=== PATIENT | female | born 2000 | race Caucasian/White ===

== ENCOUNTER 2024-08-04 00:02 | Emergency (ER) | payer OTHER ==
[~2024-08-04] VITALS: Ht 160 cm; Wt 81.6 kg
[2024-08-04] MEDS ORDERED: OXYMETAZOLINE NASAL 0.05% 15 ML SPRAY NS ONE (00:19)
[2024-08-04] MEDS: OXYMETAZOLINE NASAL 0.05% 15 ML SPRAY NS ONE (00:38)
[2024-08-04 01:01] VITALS: BP 119/85; TEMP 97.7; O2SAT 98
== END 2024-08-04 00:59 | disposition home or self-care (01) ==
LOC: ER 00:18
DX: R04.0 Epistaxis (principal)
CPT/HCPCS: A4606; A4663